=== PATIENT | male | born 1960 | race Caucasian/White ===

== ENCOUNTER 2019-06-14 16:17 | Emergency (ER) | payer BC, OTHER ==
[2019-06-14 16:28] VITALS: BP 143/84
[2019-06-14] MEDS ORDERED: LIDOCAINE JELLY 2% 5 ML TUBE TOP STA (16:33)
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
== END 2019-06-14 17:40 | disposition home or self-care (01) ==
LOC: ED 16:17
DX: S00.31XA Abrasion of nose, initial encounter (principal); S60.811A Abrasion of right wrist, initial encounter; S50.811A Abrasion of right forearm, initial encounter; S80.211A Abrasion, right knee, initial encounter; S60.511A Abrasion of right hand, initial encounter; S60.512A Abrasion of left hand, initial encounter; V19.9XXA Pedal cyclist (driver) (passenger) injured in unspecified traffic accident, initial encounter; Y93.55 Activity, bike riding
CPT/HCPCS: 99281; 99282; J3490